=== PATIENT | male | born 1995 | race Caucasian/White ===

== ENCOUNTER 2017-06-29 21:35 | Emergency (ER) | payer OTHER ==
--- NOTE | 2017-06-29 22:51 | RADIOLOGY REPORT (SQ) ---
EXAM DESCRIPTION: CHEST PA/LAT COMPLETED DATE/TIME: 06/29/2017 10:40 pm REASON FOR STUDY: fever COMPARISON: May 2007 EXAM PARAMETERS: NUMBER OF VIEWS: two views TECHNIQUE: Digital Frontal and Lateral radiographic views of the chest acquired. RADIATION DOSE: NA LIMITATIONS: none FINDINGS: LUNGS AND PLEURA: No opacities, masses or pneumothorax. No pleural effusion. MEDIASTINUM AND HILAR STRUCTURES: No masses or contour abnormalities. HEART AND VASCULAR STRUCTURES: Heart normal size. No evidence for failure. BONES: No acute findings. HARDWARE: None in the chest. OTHER: No other significant finding. IMPRESSION: NO SIGNIFICANT RADIOGRAPHIC FINDING IN THE CHEST. TECHNICAL DOCUMENTATION: JOB ID: [id number] [employer]- All Rights Reserved
[2017-06-29 23:11] LABS: A TYPE INFLUENZA AG POSITIVE (NEGATIVE); B INFLUENZA AG NEGATIVE (NEGATIVE)
[2017-06-29] MEDS ORDERED: IBUPROFEN 800 MG TABLET PO ONE (23:33)
[2017-06-29] MEDS ORDERED: ONDANSETRON ODT 4 MG TAB (6 TAB/ER DISP) PO PRN (23:42)
--- NOTE | 2017-06-29 23:44 | ER Document Report ---
ED General - General Chief Complaint: Cough Stated Complaint: FEVER Time Seen by Provider: 06/29/17 22:24 TRAVEL OUTSIDE OF THE [place] IN LAST 30 DAYS: No - HPI Patient complains to provider of: Cough fever Notes: Patient coming in for acute onset of cough fever last 24 hours. Patient denies any sick contacts. Patient denies getting a flu shot. Upon my evaluation patient resting comfortably complains of diffuse myalgias. Denies any recent antibiotics trauma. - Related Data Allergies/Adverse Reactions: Sulfa (Sulfonamide Antibiotics) Allergy (Verified 06/29/17 21:37) Past Medical History - Social History Smoking Status: Unknown if Ever Smoked Family History: None Patient has suicidal ideation: No Patient has homicidal ideation: No Renal/ Medical History: Denies: Hx Peritoneal Dialysis - Immunizations Immunizations up to date: Yes Hx Diphtheria, Pertussis, Tetanus Vaccination: Yes Review of Systems - Review of Systems Constitutional: Fever EENT: No symptoms reported Cardiovascular: No symptoms reported Respiratory: Cough Gastrointestinal: No symptoms reported Genitourinary: No symptoms reported Male Genitourinary: No symptoms reported Musculoskeletal: No symptoms reported Skin: No symptoms reported Hematologic/Lymphatic: No symptoms reported Neurological/Psychological: No symptoms reported -: Yes All other systems reviewed and negative Physical Exam - Vital signs Vitals: Temp Pulse Resp BP Pulse Ox 100.5 F H 132 H 20 125/68 100 06/29/17 21:41 06/29/17 21:41 06/29/17 21:41 06/29/17 21:41 06/29/17 21:41 Interpretation: Tachycardic, Febrile - General General appearance: Appears well, Alert - HEENT Head: Normocephalic, Atraumatic Eyes: Normal Pupils: PERRL - Respiratory Respiratory status: No respiratory distress Chest status: Nontender Breath sounds: Normal Chest palpation: Normal - Cardiovascular Rhythm: Regular Heart sounds: Normal auscultation Murmur: No - Abdominal Inspection: Normal Distension: No distension Bowel sounds: Normal Tenderness: Nontender Organomegaly: No organomegaly - Back Back: Normal, Nontender - Extremities General upper extremity: Normal inspection, Nontender, Normal color, Normal ROM , Normal temperature General lower extremity: Normal inspection, Nontender, Normal color, Normal ROM , Normal temperature, Normal weight bearing. No: Meli's sign - Neurological Neuro grossly intact: Yes Cognition: Normal Orientation: AAOx4 Jillian Coma Scale Eye Opening: Spontaneous Jillian Coma Scale Verbal: Oriented [place] Coma Scale Motor: Obeys Commands [place] Coma Scale Total: 15 Speech: Normal Motor strength normal: LUE, RUE, LLE, RLE Sensory: Normal - Psychological Associated symptoms: Normal affect, Normal mood - Skin Skin Temperature: Warm Skin Moisture: Dry Skin Color: Normal Course - Re-evaluation Re-evalutation: 06/30/17 02:47 Patient returned positive for flu. Patient otherwise looks nontoxic. Patient was encouraged to drink plenty of fluids. Patient states more likely slightly dehydrated as he has been drinking alcohol for the last few days. States patient symptoms can last for the next 7 days. Cough may last for 3 weeks encouraged patient to stop smoking and to stop drinking alcohol drink plenty of water and Gatorade to stay hydrated. Patient states understanding will discharge home. Education of use Tylenol Motrin for fever control was also performed. - Vital Signs Vital signs: Temp Pulse Resp BP Pulse Ox 101.2 F H 110 H 18 110/78 98 06/29/17 23:54 06/29/17 23:54 06/29/17 23:54 06/29/17 23:54 06/29/17 23:54 Discharge - Discharge Clinical Impression: Influenza A Condition: Good Disposition: HOME, SELF-CARE Instructions: Influenza ([facility]) [id number] Additional Instructions: Take medications as prescribed. Alternate every 4 hours between Tylenol and Motrin. Also recommend using honey your favorite beverage for cough suppression. Please make sure you drink plenty water to stay well hydrated return to the ER if symptoms worsen. Please avoid any smoking please avoid any excessive contact with young children or the elderly population. Prescriptions: Acetaminophen 650 mg PO Q6 #100 tablet Ibuprofen [Motrin 800 mg Tablet] 800 mg PO Q8H PRN #30 tab PRN Reason: Forms: Return to School, Return to Work
[2017-06-29 23:54] VITALS: BP 110/78
== END 2017-06-29 23:54 | disposition home or self-care (01) ==
LOC: ER 21:35
DX: J09.X2 Influenza due to identified novel influenza A virus with other respiratory manifestations (principal); R05 Cough; R50.9 Fever, unspecified
CPT/HCPCS: 71020; 87804; 99284

== ENCOUNTER 2018-02-02 10:39 | Emergency (ER) | payer OTHER ==
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
[2018-02-02] MEDS ORDERED: IBUPROFEN 600 MG TABLET PO ONE (11:15)
[2018-02-02] MEDS ORDERED: ACETAMINOPHEN 325 MG TABLET PO ONE (11:15)
[2018-02-02 11:50] VITALS: BP 128/75
== END 2018-02-02 11:30 | disposition home or self-care (01) ==
LOC: ER 10:39
DX: S29.012A Strain of muscle and tendon of back wall of thorax, initial encounter (principal); M54.6 Pain in thoracic spine; M25.519 Pain in unspecified shoulder; V89.2XXA Person injured in unspecified motor-vehicle accident, traffic, initial encounter
CPT/HCPCS: 99283